=== PATIENT | female | born 1980 | race American Indian/Alaskan Native ===

== ENCOUNTER 2017-01-03 00:32 | Emergency (ER) | payer MEDICAID ==
[2017-01-03] MEDS ORDERED: BOOSTRIX IM ONE (02:33)
[2017-01-03] MEDS ORDERED: XYLOCAINE 1% MPF 5 mL INFILTRATI ONE (02:34)
[2017-01-03] MEDS ORDERED: FLEXERIL PO ONE (02:34)
[2017-01-03] MEDS ORDERED: NORCO 5/325 PO ONE (02:34)
[2017-01-03] MEDS ORDERED: NACL 0.9% 500 ML IR ONE (02:57)
--- NOTE | 2017-01-03 03:13 | XRay Report ---
FINAL REPORT PROCEDURE: XR FINGER(S) 2+V LT TECHNIQUE: LEFT 3rd finger radiographs, including AP, lateral, and oblique views. HISTORY: LEFT FINGER PAIN COMPARISON: No prior studies are available for comparison. FINDINGS: Fracture (s) and/or Dislocation(s): None . Alignment: Normal. Joint space(s): Normal . Soft tissues: There is a focal laceration of the distal 3rd digit. There is no foreign body. Bone mineralization: Normal . Foreign bodies: None . IMPRESSION: Soft tissue injury of the 3rd digit. There is no fracture or dislocation or foreign body.
--- NOTE | 2017-01-03 04:03 | Emergency Department Report ---
ED Laceration HPI - HPI Chief Complaint: Wound/Laceration Stated Complaint: LT MIDDLE INJURED FINGER Occurred When: Today Location: Upper Extremity Severity: mild Tetanus Status: Not up to Date Laceration Symptoms: Yes Pain, No Foreign Body Sensation, No Numbness, No Weakness Other History: 37 year old female presents to ED with left middle finger laceration after slamming finger in door just [employer]. patient is stable, neurologically intact and in no acute distress. bleeding well controlled. ED Review of Systems ROS: Stated complaint: LT MIDDLE INJURED FINGER Other details as noted in HPI Constitutional: denies: chills, fever Eyes: denies: eye pain, eye discharge, vision change ENT: denies: ear pain, throat pain Respiratory: denies: cough, shortness of breath, wheezing Cardiovascular: denies: chest pain, palpitations Endocrine: no symptoms reported Gastrointestinal: denies: abdominal pain, nausea, diarrhea Genitourinary: denies: urgency, dysuria, discharge Musculoskeletal: denies: back pain, joint swelling, arthralgia Skin: other (2cm laceration present to palmar surface of distal middle finger). denies: rash, lesions Neurological: denies: headache, weakness, paresthesias Psychiatric: denies: anxiety, depression Hematological/Lymphatic: denies: easy bleeding, easy bruising ED Past Medical Hx - Past Medical History Previous Medical History?: Yes Hx Hypertension: Yes Hx Psychiatric Treatment: Yes (OP MD through [facility]) - Surgical History Past Surgical History?: Yes Additional Surgical History: , tubal - Social History Smoking Status: Current Every Day Smoker Substance Use Type: Alcohol - Medications Home Medications: Home Medications Medication Instructions Recorded Confirmed Last Taken Type Lisinopril/Hydrochlorothiazide 1 each PO DAILY 11/07/14 11/07/14 Unknown History [Zestoretic 20-12.5 mg] Omeprazole [PriLOSEC] 20 mg PO QDAY 11/07/14 11/07/14 Unknown History cloNIDine [Catapres] 0.1 mg PO DAILY 11/07/14 11/07/14 Unknown History Cephalexin [Keflex] 500 mg PO Q12HR #10 cap 01/03/17 Unknown Rx Meloxicam [Mobic] 7.5 mg PO QDAY #5 tablet 01/03/17 Unknown Rx Laceration Physical Exam - Exam General: Vital signs noted. No distress. Alert and acting appropriately. Laceration Location: Upper Extremity (left distal middle finger palmar surface) Laceration Exam: Yes Normal Distal CMS, No Foreign Body, No Exposed Tendon, Vessel, or Nerve, No Tendon Injury ED Course Vital Signs 01/03/17 00:48 Temperature 98.3 F Pulse Rate 72 Respiratory 20 Rate Blood Pressure 169/118 O2 Sat by Pulse 99 Oximetry - Laceration /Wound Repair Left Anterior Distal Palm Finger Wound Location: upper extremity Wound Length (cm): 2 Wound's Depth, Shape: superficial, flap Wound Explored: clean Irrigated w/ Saline (ccs): 100 Betadine Prep?: Yes Anesthesia: 1% Lidocaine Volume Anesthetic (ccs): 5 Wound Debrided: minimal Wound Repaired With: sutures Suture Size/Type: 5:0, nylon Number of Sutures: 4 Layer Closure?: No Sterile Dressing Applied?: Yes Progress: patient tolerated well ED Medical Decision Making - Radiology Data Radiology results: report reviewed XR finger Soft tissue injury of 3rd digit. no foreign body, fracture or dislocation identified. - Medical Decision Making 37 year old female presents to ED with 3rd left finger laceration. patient has tolerated 4 sutures well. bleeding well controlled. patient agrees and understands to return to ED within 7-10days for suture removal. patient is stable, neurologically intact and in no acute distress. patient has had tetanus during ED visit. Critical care attestation.: If time is entered above; I have spent that time in minutes in the direct care of this critically ill patient, excluding procedure time. ED Disposition Clinical Impression: Laceration of finger, middle Qualifiers: Encounter type: initial encounter Damage to nail status: without damage Foreign body presence: without foreign body Laterality: left Qualified Code(s): S61.213A - Laceration without foreign body of left middle finger without damage to nail, initial encounter Disposition: DC-01 TO HOME OR SELFCARE Is pt being admited?: No Does the pt Need Aspirin: No Condition: Stable Instructions: Suture Care (ED), Laceration (ED) Additional Instructions: Please return within 7-10 days for suture removal. Prescriptions: Cephalexin [Keflex] 500 mg PO Q12HR #10 cap Meloxicam [Mobic] 7.5 mg PO QDAY #5 tablet Referrals: PRIMARY CARE, [Primary Care Provider] - 3-5 Days
[2017-01-03] MEDS ORDERED: TRIPLE ANTIBIOTIC TP ONE (04:15)
[2017-01-03] MEDS ORDERED: CATAPRES PO ONE ×2 (04:35→05:40)
[2017-01-03] MEDS ORDERED: APRESOLINE PO ONE (06:13)
[2017-01-03 07:17] VITALS: BP 162/102
== END 2017-01-03 07:19 | disposition home or self-care (01) ==
LOC: ED 00:32
DX: S61.213A Laceration without foreign body of left middle finger without damage to nail, initial encounter (principal); I10 Essential (primary) hypertension; F17.200 Nicotine dependence, unspecified, uncomplicated; W23.0XXA Caught, crushed, jammed, or pinched between moving objects, initial encounter; Y93.9 Activity, unspecified; Y99.9 Unspecified external cause status; Y92.89 Other specified places as the place of occurrence of the external cause
CPT/HCPCS: 36415; 84703; 90471; 90715; A6250

== ENCOUNTER 2017-01-09 18:10 | Emergency (ER) | payer MEDICAID | END 2017-01-09 18:25 | disposition left against medical advice (07) | LOC: ED 18:10 | DX: I10 Essential (primary) hypertension (principal); Z53.21 Procedure and treatment not carried out due to patient leaving prior to being seen by health care provider ==